=== PATIENT | male | born 1970 | race Caucasian/White ===

== ENCOUNTER 2023-10-30 15:14 | Emergency (ER) | payer OTHER ==
[2023-10-30 15:46] VITALS: BP 131/74; PULSE 75; RESP 16; TEMP 99.1; BMI 23.7
== END 2023-10-30 18:44 | disposition home or self-care (01) ==
LOC: JER 15:14
DX: S81.802A Unspecified open wound, left lower leg, initial encounter (principal); I87.2 Venous insufficiency (chronic) (peripheral); W22.8XXA Striking against or struck by other objects, initial encounter
CPT/HCPCS: 99283-25